=== PATIENT | male | born 1995 | race Caucasian/White ===

== ENCOUNTER 2016-10-12 23:19 | Emergency (ER) | payer OTHER ==
[~2016-10-12] VITALS: Ht 185.4 cm; Wt 126.1 kg
[~2016-10-12 23:19] MED LIST: NORCO 5/3251 TABLET PO
[2016-10-12] MEDS ORDERED: NAPROXEN500 MG PO (23:57)
[2016-10-13 00:38] VITALS: BP 115/73
== END 2016-10-13 00:39 | disposition home or self-care (01) ==
LOC: EXP 23:19 → EME 23:19 → EXP 10-13 00:39
DX: S46.811A Strain of other muscles, fascia and tendons at shoulder and upper arm level, right arm, initial encounter (principal); X50.3XXA Overexertion from repetitive movements, initial encounter
CPT/HCPCS: 99281; 99284